=== PATIENT | female | born 1975 | race Caucasian/White ===

== ENCOUNTER 2024-09-26 08:26 | Emergency (ER) | payer OTHER, SELFPAY ==
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
[2024-09-26 08:35] VITALS: BP 168/98; PULSE 106; O2SAT 100
[2024-09-26 08:36] VITALS: BP 189/100; PULSE 88; RESP 16; TEMP 36.2; O2SAT 95; BMI 27.4
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
[2024-09-26 09:39] VITALS: BP 189/100
[2024-09-26] MEDS: lisinopriL 20 MG TABLET PO (09:39)
[2024-09-26] MEDS: Lidocaine 4 % Patch ADH..PATCH 1 PATCH TRANSDERMA (09:39)
[2024-09-26] MEDS: Acetaminophen 325 MG TABLET 650 MG PO (09:39)
[2024-09-26] MEDS: Cyclobenzaprine HCl 5 MG TABLET PO (09:39)
--- NOTE | 2024-09-26 09:41 | PC.NURSE ---
pt medicated per order
[2024-09-26 12:39] VITALS: BP 139/81; PULSE 83; RESP 16; O2SAT 97
[2024-09-26 13:36] VITALS: BP 139/81; PULSE 83; RESP 16; TEMP 36.9; O2SAT 97
== END 2024-09-26 13:39 | disposition home or self-care (01) ==
PROVIDERS: Emergency Provider Emergency Medicine
DX: S00.83XA Contusion of other part of head, initial encounter (principal); S70.12XA Contusion of left thigh, initial encounter; V43.52XA Car driver injured in collision with other type car in traffic accident, initial encounter; I10 Essential (primary) hypertension; W22.11XA Striking against or struck by driver side automobile airbag, initial encounter; Y93.89 Activity, other specified; Y92.414 Local residential or business street as the place of occurrence of the external cause; Y99.9 Unspecified external cause status
CPT/HCPCS: 70450; 70486; 72072; 72100; 72125; 73552; 99283; 99284

== ENCOUNTER 2025-05-19 08:33 | Emergency (ER) | payer OTHER, SELFPAY ==
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
--- NOTE | ~2025-05-19 | XR_ITS ---
EXAMINATION: XR CHEST 2 VIEWS HISTORY: chest wall pain r upper chest COMPARISON: There are no prior studies available for comparison. FINDINGS: PA and lateral views of the chest are submitted. The lungs are expanded and clear. There is no pleural effusion, pneumothorax, or pulmonary vascular congestion. The heart is normal in size. The bones are intact. XR/XR chest 2V IMPRESSION: Normal examination of the chest. Electronically signed by: Rafat Kahn MD 05/19/2025 09:08 AM EDT
--- NOTE | 2025-05-19 08:36 | ECG_ITS ---
Test Reason : CHEST PAIN Blood Pressure : */* mmHG Vent. Rate : 91 BPM Atrial Rate : 91 BPM P-R Int : 134 ms QRS Dur : 82 ms QT Int : 352 ms P-R-T Axes : 9 -19 25 degrees QTcB Int : 432 ms Normal sinus rhythm Septal infarct , age undetermined Abnormal ECG No previous ECGs available Referred By: Generic ED Physician Electronically Signed By: BROOKE RIVAS
[2025-05-19 08:45] VITALS: BP 186/86; PULSE 88; RESP 18; TEMP 36.6; O2SAT 98; BMI 28.3
[2025-05-19 09:21] LABS: MANUAL DIFF FLAG NO
[2025-05-19 09:23] LABS: Hematocrit 39.4 % (37.0-47.0); Hemoglobin 13.7 g/dl (12.0-16.0); Imm Gran Abs Auto 0.01 X10*3/uL (0.00-0.03); Imm Gran Pct Auto 0.1 % (0.0-0.4); Lymphocytes Absolute Auto 1.5 X10*3/uL (1.2-4.9); Mean Corpuscular HGB Conc 34.8 g/dl (31.0-35.0); Mean Corpuscular Hemoglobin 30.7 pg (27.0-33.0); Mean Corpuscular Volume 88.3 fL (80.0-98.0); NRBC Abs Auto 0.000 X10*3/uL (0.0-0.012); NRBC Pct Auto 0.0 /100WBC (0.0-0.2); Platelet Count 176 X10*3/uL (160-400); Red Blood Count 4.46 X10*6/uL (4.20-5.50); White Blood Count 6.8 X10*3/uL (4.8-10.8)
--- NOTE | 2025-05-19 09:38 | ED_ITS ---
HPI - General Adult General Chief complaint: General Medical Stated complaint: R Chest pain for 5 days, Pain from chest to back Time Seen by Provider: 05/19/25 10:00 Source: patient Mode of arrival: ambulatory Limitations: no limitations History of Present Illness ED Provider: Danya Mccall PA-C HPI narrative: Patient with a past medical history significant for diabetes and anxiety presenting to emergency department today for evaluation of epigastric this conference been going on for the last month and a half. Ever since it has been more persistent and it waxes and wanes. It is not associated with exertion, positional changes but she does notice it does sometimes worsened based on the food that she eats. She also has had a chronic cough for several months now. She has no history of asthma and has never been told that she has heartburn. Sometimes the pain does reflux upward to her epigastric region especially when she lays down. She has not tried any antacid agents. Currently she is not experiencing any discomfort. She saw her primary care provider 2 weeks ago and discussed this with her she and say anything about a cough but did order an outpatient stress test or October. 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 She also reports insomnia she only sleeps about 3 hours a night on average but when she does fall asleep she stays asleep. She feels like she is always fatigued because of this with her eyes feeling heavy but denies any dizziness or headaches or syncope. Related Data Previous Rx's ?Medication ?Instructions ?Recorded acetaminophen 325 mg tablet 650 mg (2 x 325 mg) PO Q6H PRN 09/26/24 (Tylenol) pain (scale score 1-3) #30 t abs cyclobenzaprine 5 mg tablet 5 mg PO Q8H PRN muscle alaina n #7 tabs 09/26/24 ibuprofen 600 mg tablet 600 mg PO Q8H PRN pain (scal e 09/26/24 score 1-3) #30 tabs lidocaine 5 % topical patch 1 patch topical DAILY #15 ea 09/26/24 (Lidoderm) omeprazole 20 mg capsule,delayed 20 mg PO BID #30 caps 05/19/25 release sucralfate 1 gram tablet 1 g PO Q6H #56 tabs 05/19/25 Allergies Allergy/AdvReac Type Severity Reaction Status Date / Time ibuprofen Allergy Palpitation Verified 05/19/25 08:47 s [facility] Social History Social History Advance Directives: No Advance Directives Information Provided: Yes Do you have a plan to hurt others: No Plan Physical Exam ED Vital Signs: Vital Signs - 24 hr 05/19/25 08:45 05/19/25 11:29 Temperature 98 F 98 F Pulse Rate 88 88 Respiratory Rate 18 18 Blood Pressure 186/86 H 186/86 H Pulse Oximetry 98 98 Oxygen Delivery Method Room Air Room Air BMI result Body Mass Index 28.3 Const General: cooperative, healthy appearing, comfortable, no acute distress, well developed, alert, awake and Physically active Nutritional Appearance: obese Orientation/consciousness: patient oriented x3 Limitations: no limitations HENMT Head: Yes normal to inspection and Yes No palpable skull fracture present Ears: hearing grossly normal bilaterally General nose exam: Normal external nose present Mouth: Normal oral and palatal mucosa present Eyes General: appearance normal, both eyes and all related structures Alignment and Position: alignment normal Periorbital: periorbital findings normal Eyelids: Yes eyelids normal Conjunctivae: conjunctivae normal Sclerae: sclerae normal Corneas: corneas normal Pupils: Equal, round and reactive pupils present Neck Neck: Yes normal visual inspection, Yes full ROM and Yes no lymphadenopathy Chest Chest palpation & inspection: normal inspection of the chest Resp Effort & Inspection: normal respiratory effort and able to speak in complete sentences Auscultation: clear to auscultation bilaterally Cardio Jugular venous distension: no JVD Rate: regular rate Rhythm: regular rhythm Peripheral pulses: Peripheral pulses 2+ throughout GI Inspection: Yes normal to inspection General: Yes bladder normal to palpation, Yes no CVA tenderness and Yes other (no ovarian tenderness) Bimanual exam- vagina & uterus: bladder normal to palpation OB/external & speculum: Deferred OB/external & speculum exam Manual OB Exam: Deferred manual OB exam Back/Spine/Pelvis Back: no CVA tenderness Cervical Spine: cervical ROM normal Thoracic/Lumbar Spine: thoracic and lumbar spine normal to inspection, thoraco- lumbar ROM normal (Pain with right lateral flexion the level of mid back, no midline tendernes), straight leg raise negative bilaterally and pain with thoraco-lumbar ROM Pelvis: no pain with anterior-posterior compression Skin General skin exam: no rashes or lesions noted Wounds: no wounds Neuro General: patient oriented x3 Cranial nerves: Yes CN's II-XII intact bilaterally and Yes Equal, round and reactive pupils present Deep tendon reflexes (DTR's): Right patellar reflex intensity grade: 2+ and Left patellar reflex intensity grade: 2+ Extrem General: Yes normal to inspection, Yes full ROM and Yes capillary refill normal Course Course Course Narrative: 49 yo female with PMH of HTN and DM who has been having pain for months has schedule stress test in July - she notes she has pain when coughing or moving. She states if she breathes hard she gets severe sharp pain on R side through to the back. She notes everything started about 2 months ago - 1st it was R chest around R ribs then it changed to squeezing pain across entire lower chest. She has only associated symptoms of sweating at 530am when she wakes up. She feels her heart rate goes up. She notes her mom had a ID at age 63. She states she feels she gets more tired and fatigued when she is walking. will obtain labs, CXR, trop x 2, doubt dissection given 2 months of pain, doubt VTE given 2 months of pain. this is a RAPID medical screening exam the rest of the history and physical exam is to be done by the main provider. BRAULIO 05/19/25 942am Medical Decision Making Medical Decision Making MDM Narrative: 49-year-old female with history of ovarian cysts, anxiety, chronic cough, gastritis, uterine fibroids and cysts status post ablation and diabetes mellitus. Upon arrival to ED she is afebrile and well-appearing. She had a rapid medical exam with lumbar spine x-ray ordered given her complaint of low back pain for the past 3 weeks along with basic labs and UA. When I received patient to my care; these were resulted. History and physical as above. Patient does have reproducible pain with all skin right lumbar flexion while standing as well as with positional changes but her abdomen and back is nontender. Labs were largely unremarkable no evidence of UTI and no hematuria or CVA tenderness/flank pain concerning for a kidney stone. Due to her lifting likely acquired lumbar strain without any spasms noted. She would likely benefit from physical therapy we will refer to orthopedics. Given that she also reported palpitations her thyroid was checked along with an EKG thyroid function is normal EKG unremarkable without any evidence of malignant arrhythmia. Though recommend follow up with cardiology for consideration of potential Holter monitor but could be her anxiety. She denies any chest pain or shortness of breath. Patient is without any vaginal symptoms and has no ovarian tenderness this is less concerning for ovarian torsion or new mass therefore as she already had a recent transvaginal ultrasound we will defer to outpatient management with OBGYN. Ultimately I did not feel that patient had a need for further workup or required inpatient care. I recommended to ease back on her exercise especially with doing lifts. There is no evidence of neurovascular compromise both acute cord syndrome as well as cortes and cortes syndrome is deemed unlikely therefore an emergent MRI was also not indicated. Lumbar spine x-ray it is remarkable then degenerative changes especially at the L5-S1 region. Did discuss this greatly with the patient. She did also report some breast soreness but denied any masses or further exam I have also recommended for her concern of hormone imbalance that she does follow up with her OBGYN as well. Ultimately his that was patient's goal being seen here for a hormone workup she has a better understanding of what we are able to do in the emergency department she will follow up as needed. She was given ED return precautions. She demonstrated verbal understanding of the plan and agrees was discharged home stable. Differential Diagnosis Differential Diagnoses: The differential diagnosis associated with the presentation includes lumbar strain, spondylosis UTI/ interstitial cystitis anxiety kidney stone abnormal uterine bleeding Admission/Observation Consideration of admission/observation: Escalation of care including admission/observation considered Lab Data MDM Lab Attestation statement: I reviewed the patient's lab results. 05/19/25 09:13 05/19/25 09:13 Labs: Lab Results 05/19/25 Range/Units 09:13 WBC 6.8 (4.8-10.8) X10*3/uL RBC 4.46 (4.20-5.50) X10*6/uL Hgb 13.7 (12.0-16.0) g/dl Hct 39.4 (37.0-47.0) % MCV 88.3 (80.0-98.0) fL MCH 30.7 (27.0-33.0) pg MCHC 34.8 (31.0-35.0) g/dl RDW 12.4 (11.0-16.0) % Plt Count 176 (160-400) X10*3/uL MPV 11.3 (9.4-12.3) fL Immature Gran % (Auto) 0.1 (0.0-0.4) % Neut % (Auto) 68.7 (45-73) % Lymph % (Auto) 22.3 (20-40) % [place] % (Auto) 5.4 (2-11) % Eos % (Auto) 3.1 (0-4) % Baso % (Auto) 0.4 (0-2) % Lymph # (Auto) 1.5 (1.2-4.9) X10*3/uL [place] # (Auto) 0.4 (0.1-1.2) X10*3/uL Eos # (Auto) 0.2 (0.0-0.4) X10*3/uL Baso # (Auto) 0.0 (0.0-0.2) X10*3/uL Abs Immat Gran (auto) 0.01 (0.00-0.03) X10*3/uL Absolute Neuts (auto) 4.7 (2.0-8.3) x10*3/uL Absolute Nucleated RBC 0.000 (0.0-0.012) X10*3/uL Nucleated RBC % (auto) 0.0 (0.0-0.2) /100WBC Sodium 135 (135-145) mmol/L Potassium 4.9 (3.3-5.1) mmol/L Chloride 103 (96-108) mmol/L Carbon Dioxide 24 (22-29) mmol/L Anion Gap 13 (12-20) BUN 31 H (9-16) mg/dL Creatinine 0.77 (0.5-1.4) mg/dL Estim Creat Clear Calc 79.4 Estimated GFR > 60 Random Glucose 397 H* (60-115) mg/dL Calcium 8.6 (8.4-10.2) mg/dL Magnesium 2.4 (1.6-2.6) mg/dL Troponin I High Sens < 2.7 (<3.5-17.0) ng/L Lipase 86 H (8-78) U/L Influenza Type A (PCR) NEGATIVE (Negative) Influenza Type B (PCR) NEGATIVE (Negative) RSV RNA Qual (PCR) NEGATIVE (Negative) SARS-CoV-2 RNA (RT-PCR) NEGATIVE (Negative) Independent Interpretation I performed an independent interpretation of an: EKG and Plain X-Ray Interpretation: Rate: 91 Rhythm: NSR Pinole: left Normal P waves. Normal CARMEN. Normal QRS complex. Poor R wave progression ST T wave : normal no NGOZI qTC: 432 prior studies: no priors The study has been interpreted contemporaneously by me. . Radiology Impression Discussion of test interpretation with radiology: I have reviewed the radiologist's reading. External Record Review External record reviewed: Outpatient record Chronic Conditions Patient?s care impacted by: Other (obesity) Discharge Plan Discharge Clinical Impression: Acute epigastric pain, Chronic cough, Hyperglycemia due to diabetes mellitus Acute gastritis Qualifiers: Gastritis type: unspecified gastritis Gastritis bleeding: without bleeding Q ualified Code(s): K29.00 - Acute gastritis without bleeding Patient Disposition: Home, Self-Care Instructions: Gastritis (DC) Additional Instructions: You were seen in the emergency department today both for epigastric pain and chest pain that is been occurring over several days and has been constant. You had troponin EKG that shows no evidence of a heart attack. Your chest x-ray is normal. There is no concerns for pneumonia today aortic dissection or pulmonary embolism. And as your pain is both at rest and can sometimes not be present exertion it is felt not to be unstable angina. You have not had an upper endoscopy done is recommended that you do follow up with gastroenterology outpatient. In the meantime we will try to reduce the acid that could be causing your symptoms. Anxiety also plays a role unfortunately it is a vicious cycle please continue to follow up with therapy and discuss this with your primary care provider. -Take Prilosec (omeprazole) once a day for 14 days, and use Pepcid (famotidine) as needed for your gastritis. You may have also been prescribed sucralfate. Take 4 times a day for 14 days. -AVOID alcohol, spicy foods, Motrin/Aleve medications, and eating past 8:00 at night. -You may take antacids such as Maalox or Tums for acute symptoms but realize that these medications will not prevent your symptoms. -Remain upright for at least 45 minutes following meals. -Follow-up with your primary care doctor or gastroenterology. -Return to ED if you develop fever, chills, increased pain, vomiting. Other things to do to prevent symptoms: -Lose weight (if you are overweight) -Raise the head of your bed by 6 to 8 inches (for example, by putting blocks of wood or rubber under 2 legs of the bed or a Styrofoam wedge under the mattress) -Avoid foods that make your symptoms worse (examples include coffee, chocolate, alcohol, peppermint, and fatty foods) -Cut down on the amount of alcohol you drink -Stop smoking, if you smoke -Eat a bunch of small meals each day, rather than 2 or 3 big meals -Avoid lying down for 3 hours after a meal If for any reason you experience worsening chest pain or shortness of breath or any new or concerning symptoms you are welcome to return to the emergency department immediately You need to eat healthy small frequent meals. Prescriptions: New omeprazole 20 mg capsule,delayed release(DR/EC) 20 mg PO BID Qty: 30 0RF sucralfate 1 gram tablet 1 g PO Q6H Qty: 56 0RF No Action cyclobenzaprine 5 mg tablet 5 mg PO Q8H PRN (Reason: muscle pain) Qty: 7 0RF lidocaine [Lidoderm] 5 % adhesive patch,medicated 1 patch topical DAILY Qty: 15 0RF Rx Instructions: leave on most painful area for up to 12 hrs acetaminophen [Tylenol] 325 mg tablet 650 mg PO Q6H PRN (Reason: pain (scale score 1-3)) Qty: 30 0RF ibuprofen 600 mg tablet 600 mg PO Q8H PRN (Reason: pain (scale score 1-3)) Qty: 30 0RF [place]: [facility] [Provider Group] Referral Note: discuss life stressors affecting mental and physical health [facility] [[place] Group] Referral Note: recurrent chest pain, not unstable angina, stress test scheduled for Jul, need to move up? [facility] [Provider Group, Gastroenterology] Referral Note: chronic cough and epigastric pain, ? need for endo will treat for gastritis in interim Clinical Impression: Chronic cough; Acute gastritis Stand Alone Forms: Work/School Release Interventions: ED Discharge Assessment Last Done: 05/19/25 11:29 Discharge Date/Time: 05/19/25 11:29 Print Language: Libyan
[2025-05-19 09:45] LABS: Troponin-I High Sensitivity < 2.7 ng/L (<3.5-17.0)
[2025-05-19 09:46] LABS: Anion Gap 13 (12-20); Blood Urea Nitrogen 31 mg/dL (9-16); Calcium 8.6 mg/dL (8.4-10.2); Carbon Dioxide 24 mmol/L (22-29); Chloride 103 mmol/L (96-108); Creatinine Clr Calc Pharmacy 79.4; Estimated Glomerular Filt Rate > 60; Potassium 4.9 mmol/L (3.3-5.1); Sodium 135 mmol/L (135-145)
[2025-05-19 10:08] LABS: Resp Syncy Virus RNA Qual PCR NEGATIVE (Negative); SARS COV2 PCR INHOUSE NEGATIVE (Negative)
--- OUTSIDE RECORDS SUMMARY | 2025-05-19 10:33 | XMS_ITS | Clinical Summary ---
Author Organization [facility] Address [address] [place] [address] Care Team Providers Care Corrosion Engineer Name Role Phone Unavailable Primary Care Provider Unavailabl e Social History Tobacco Use Types Packs/Day Years Used Date Smoking Tobacco: Never Assessed Comments Unknown Sex and Gender Information Value Date Recorded Sex Assigned at Not on file Legal Sex Female 4:36 AM EST Gender Identity Not on file Sexual Orientation Not on file Plan of Treatment Health Maintenance Due Date Last Done Comments Breast Cancer Screening 1973 DTaP,Tdap,and Td Vaccines (1 - Tdap) 1992 Hepatitis B Vaccines (1 of 3 - 19+ 3-dose series) 1992 Cervical Cancer Screening: P ap Smear 1994 Pneumococcal Vaccine: 50+ Ye ars (1 of 1 - PCV) 2023 Zoster Vaccines (1 of 2) 2023 COVID-19 Vaccine (2023-2 5 season) 2024 Depression Screening 10/14/2024 Influenza Vaccine (#1) 2025 HIB Vaccines Aged Out No longer eligi ble based on patient's age to complete this topic HPV Vaccines Aged Out No longer eligi ble based on patient's age to complete this topic Hepatitis A Vaccines Aged Out No long er eligible based on patient's age to complete this topic IPV Vaccines Aged Out No longer eligi ble based on patient's age to complete this topic MMR Vaccines Aged Out No longer eligi ble based on patient's age to complete this topic Meningococcal ACWY Vaccine Aged Out N o longer eligible based on patient's age to complete this topic Meningococcal B Vaccine Aged Out No l onger eligible based on patient's age to complete this topic RSV Immunization Patients Un paula 20 months Aged Out No longer eligible b ased on patient's age to complete this topic Varicella Vaccines Aged Out No longer eligible based on patient's age to complete this topic
--- OUTSIDE RECORDS SUMMARY | 2025-05-19 10:33 | XMS_ITS | Clinical Summary ---
Author Organization [facility], Address [address] [place] [address] [place] [address] Phone Care Team Providers Care Transportation Program Director Name Role Phone Unavailable Primary Care Provider Unavailabl e Social History Tobacco Use Types Packs/Day Years Used Date Smoking Tobacco: Never Assessed Comments Unknown Sex and Gender Information Value Date Recorded Sex Assigned at Not on file Legal Sex Female 11:03 AM EDT Gender Identity Not on file Sexual Orientation Not on file Plan of Treatment Health Maintenance Due Date Last Done Comments Breast Cancer Screening 1973 Hepatitis B Vaccine (1 of 3 - 19+ 3-dose series) 07/19 Colorectal Cancer Screening: Annual FOBT 2022 Colorectal Cancer Screening: Colonoscopy 2022 Colorectal Cancer Screening: Sigmoidoscopy 2022 Pneumococcal Vaccine: 50+ Years (1 of 1 - PCV) 023 Influenza Vaccine (#1) 2025 Insurance [facility] Medicaid
[2025-05-19 11:25] LABS: Lipase 86 U/L (8-78); Magnesium 2.4 mg/dL (1.6-2.6)
[2025-05-19 11:29] VITALS: BP 186/86; PULSE 88; RESP 18; TEMP 36.6; O2SAT 98
== END 2025-05-19 11:29 | disposition home or self-care (01) ==
PROVIDERS: Physician Assistant Medical; Emergency Provider Emergency Medicine
DX: K29.00 Acute gastritis without bleeding (principal); E11.65 Type 2 diabetes mellitus with hyperglycemia; M54.50 Low back pain, unspecified; R05.3 Chronic cough; I10 Essential (primary) hypertension
CPT/HCPCS: 71046; 80048; 83690; 83735; 84484; 85025; 87637; 93005; 99283

== ENCOUNTER → 2025-05-19 08:36 | Outpatient (BNV) | payer OTHER, SELFPAY | PROVIDERS: Emergency Provider Emergency Medicine; Visit Provider Internal Medicine | DX: R94.31 Abnormal electrocardiogram [ECG] [EKG] (principal); R07.89 Other chest pain | CPT/HCPCS: 93010 ==

== ENCOUNTER → 2025-05-19 08:49 | Outpatient (BNV) | payer OTHER, SELFPAY | PROVIDERS: Visit Provider Radiology Diagnostic Radiology | DX: R07.89 Other chest pain (principal) | CPT/HCPCS: 71046 ==